=== PATIENT | female | born 1995 | race Native Hawaiian/Other Pacific Islander ===

== ENCOUNTER 2019-03-20 16:26 | Outpatient (CLI) | payer BC ==
[2019-03-20 17:04] LABS: PLATELET COUNT 229 K/uL (152-353)
[2019-03-20 17:11] LABS: POTASSIUM 4.1 mmol/L (3.6-5.2)
== END 2019-03-20 19:31 | disposition home or self-care (01) ==
LOC: LABW 16:26
PROVIDERS: Internal Medicine
DX: R53.82 Chronic fatigue, unspecified (principal); M25.50 Pain in unspecified joint
CPT/HCPCS: 36415; 80053; 80307; 81000; 81025; 82043; 82533; 82570; 82607; 82746; 83001; 83002; 83735; 84100; 84155; 84402; 84403; 84425; 84439; 84443; 85027; 85651; 86038; 86308; 86618

== ENCOUNTER 2019-10-15 14:09 | Outpatient (CLI) | payer BC | END 2019-10-15 20:38 | disposition home or self-care (01) | LOC: LABW 14:09 | DX: N92.6 Irregular menstruation, unspecified (principal) | CPT/HCPCS: 36415; 84702 ==

== ENCOUNTER 2020-01-25 16:57 | Emergency (ER) | payer BC ==
[~2020-01-25] VITALS: Ht 170.2 cm; Wt 78.0 kg
[2020-01-25 18:10] VITALS: BP 127/77; TEMP 98.5
== END 2020-01-25 18:13 | disposition home or self-care (01) ==
LOC: ED 16:57
DX: R10.84 Generalized abdominal pain (principal)
CPT/HCPCS: 84702; 99282

== ENCOUNTER 2020-02-10 15:42 | Outpatient (CLI) | payer BC ==
[2020-02-10 16:49] LABS: PLATELET COUNT 279 K/uL (152-353)
[2020-02-10 17:11] LABS: POTASSIUM 3.9 mmol/L (3.6-5.2)
== END 2020-02-10 20:22 | disposition home or self-care (01) ==
LOC: LABW 15:42
PROVIDERS: Internal Medicine Gastroenterology
DX: K59.1 Functional diarrhea (principal); K92.1 Melena; R53.82 Chronic fatigue, unspecified
CPT/HCPCS: 36415; 80053; 82272; 82607; 82705; 82747; 83630; 84443; 85027; 85651; 86038; 87015; 87045; 87324; 87328; 87329; 87449; 87899

== ENCOUNTER 2020-02-12 09:18 | Day surgery (SDC) | payer BC ==
[~2020-02-12] VITALS: Ht 30.5 cm; Wt 0.5 kg
== END 2020-02-12 12:35 | disposition home or self-care (01) ==
LOC: OR 09:18
PROC: 0DBP8ZZ Excision of Rectum, Via Natural or Artificial Opening Endoscopic (ICD-10-PCS; principal; 2020-02-12)
PROC: 0DBE8ZZ Excision of Large Intestine, Via Natural or Artificial Opening Endoscopic (ICD-10-PCS; 2020-02-12)
DX: K62.1 Rectal polyp (principal); K63.5 Polyp of colon; K64.8 Other hemorrhoids; R10.30 Lower abdominal pain, unspecified; K92.1 Melena; R19.7 Diarrhea, unspecified
CPT/HCPCS: 81000; 81025; J2704

== ENCOUNTER 2020-03-04 09:56 | Day surgery (SDC) | payer BC | END 2020-03-05 14:15 | disposition home or self-care (01) | LOC: OR 09:56 | PROVIDERS: ATTEND Internal Medicine Gastroenterology | PROC: 0DB18ZZ Excision of Upper Esophagus, Via Natural or Artificial Opening Endoscopic (ICD-10-PCS; principal; 2020-03-04) | PROC: 0DB88ZZ Excision of Small Intestine, Via Natural or Artificial Opening Endoscopic (ICD-10-PCS; 2020-03-04) | PROC: 0DB68ZZ Excision of Stomach, Via Natural or Artificial Opening Endoscopic (ICD-10-PCS; 2020-03-04) | DX: K21.00 Gastro-esophageal reflux disease with esophagitis, without bleeding (principal); K29.00 Acute gastritis without bleeding; R10.13 Epigastric pain; R11.0 Nausea; R19.7 Diarrhea, unspecified; K25.9 Gastric ulcer, unspecified as acute or chronic, without hemorrhage or perforation | CPT/HCPCS: 81025; J2001; J2704 ==

== ENCOUNTER 2020-03-19 15:47 | Emergency (ER) | payer BC ==
[~2020-03-19] VITALS: Ht 170.2 cm; Wt 81.6 kg
[2020-03-19 15:54] VITALS: TEMP 97.3
[2020-03-19 16:49] LABS: PLATELET COUNT 250 K/uL (152-353)
[2020-03-19 16:57] LABS: POTASSIUM 3.9 mmol/L (3.6-5.2)
[2020-03-19 18:22] VITALS: BP 126/68
== END 2020-03-19 18:22 | disposition home or self-care (01) ==
LOC: ED 15:47
PROVIDERS: Emergency Medicine Emergency Medical Services
DX: H83.09 Labyrinthitis, unspecified ear (principal); Z20.828 Contact with and (suspected) exposure to other viral communicable diseases
CPT/HCPCS: 36415; 80053; 85027; 87502; 87635; 96360; 96375; 99284; J2405; U0003

== ENCOUNTER 2020-11-11 14:28 | Outpatient (CLI) | payer BC | END 2020-11-11 23:41 | disposition home or self-care (01) | LOC: RAD 14:28 | PROVIDERS: ATTEND Nurse Practitioner Family | DX: R05 Cough (principal) ==

== ENCOUNTER 2021-01-20 15:05 | Outpatient (CLI) | payer BC ==
[2021-01-20 15:24] LABS: PLATELET COUNT 296 K/uL (152-353)
== END 2021-01-20 19:33 | disposition home or self-care (01) ==
LOC: LABW 15:05
PROVIDERS: ATTEND Internal Medicine
DX: R53.82 Chronic fatigue, unspecified (principal)
CPT/HCPCS: 36415; 82607; 84439; 84443; 84702; 85027

== ENCOUNTER 2022-12-21 16:01 | Outpatient (CLI) | payer BC, OTHER | END 2022-12-21 18:54 | disposition home or self-care (01) | LOC: RAD 16:01 | PROVIDERS: ATTEND Nurse Practitioner Family | DX: M54.59 Other low back pain (principal); M54.6 Pain in thoracic spine; M54.2 Cervicalgia ==